=== PATIENT | female | born 1985 | race Caucasian/White ===

== ENCOUNTER 2017-03-25 06:15 | Inpatient (IN) | payer OTHER ==
[2017-03-25] VITALS (32 sets, daily range): BP systolic 100–135; BP diastolic 55–79; PULSE 52–126; TEMP 97.6–98.4
[~2017-03-25] VITALS: Ht 160 cm; Wt 86.4 kg
[2017-03-25] MEDS ORDERED: PRENATAL1 TA7 PO (07:04)
[2017-03-25] MEDS ORDERED: PRILOSEC10 MG PO (07:05)
[2017-03-25 08:07] LABS: BASO % 0.1 % (0.0-2.0); EOS # 0.1 (0.0-0.7); EOS % 0.6 % (0-4.0); GRAN # 5.4 (1.4-6.5); GRAN % 68.8 % (42.2-75.2); LYMPH # 1.8 (1.2-3.4); LYMPH % 22.5 % (20.0-51.0); MEAN CELL VOLUME 83 fl (80.0-100.0); MEAN CORPUSCULAR HGB CONC 33 g/dl (33.0-37.0); MEAN PLATELET VOLUME 11.3 fl (7.4-10.4); MONO # 0.6 (0.1-0.6); MONO % 7.2 % (1.7-9.3); PLATELET COUNT 196 K/mm3 (130-400); RED BLOOD COUNT 3.87 M/mm3 (4.10-5.30); REDCELL DISTRIBUTION WIDTH-CV 13.7 % (11.5-14.5); WHITE BLOOD COUNT 7.9 K/mm3 (4.8-10.8)
[2017-03-25 08:11] LABS: HEMATOCRIT 32.2 % (37.0-47.0); HEMOGLOBIN 10.7 g/dl (12.5-16.0); MEAN CORPUSCULAR HEMOGLOBIN 28 pg (27.0-31.0)
[2017-03-25] MEDS ORDERED: MOTRIN 800800 MG/TAB PO (08:48)
[2017-03-25] MEDS ORDERED: PERCOCET 325 MG1 TA2 PO (08:48)
[2017-03-26 07:14] VITALS: BP 117/64; PULSE 73; TEMP 97.7
== END 2017-03-26 16:00 | disposition home or self-care (01) | DRG 775 ==
LOC: OB 06:15 → LDR 06:32 → OB 16:00 → EDSTATUS 03-31 06:13 → LDRO 03-31 08:36
PROVIDERS: Obstetrics & Gynecology
PROC: 10E0XZZ Delivery of Products of Conception, External Approach (ICD-10-PCS; principal; 2017-03-25)
PROC: 3E033VJ Introduction of Other Hormone into Peripheral Vein, Percutaneous Approach (ICD-10-PCS; 2017-03-25)
PROC: 0HQ9XZZ Repair Perineum Skin, External Approach (ICD-10-PCS; 2017-03-25)
DX: O69.81X0 Labor and delivery complicated by cord around neck, without compression, not applicable or unspecified (principal); O70.0 First degree perineal laceration during delivery; Z3A.39 39 weeks gestation of pregnancy; Z37.0 Single live birth
CPT/HCPCS: J1200; J2590; J7120